=== PATIENT | female | born 1965 | race Caucasian/White ===

== ENCOUNTER → 2017-01-30 15:29 | Outpatient (CLI) | payer OTHER ==
[2014-05-15 08:51] VITALS: BMI 38.3
[~2017-01-30 15:29] MED LIST: AMBIEN10 MG PO; ATARAX 25 MG TA25 MG; BAYER CHEWABLE81 MG PO; CELEBREX200 MG PO; COREG25 MG PO; COUMADIN5 MG PO; CRESTOR20 MG PO; ESTRADERM 0.10.1 MG TD; ESTROGEN PATCH GT; GLUCOPHAGE1000 MG PO; LANTUS INSULIN10 ML SC; METANX; NORCO 10/325 TA1 TA1 PO; PERCOCET 10/3251 TA1 PO; PLAVIX75 MG PO; PRINIVIL20 MG PO; PROMETRIUM100 MG PO; VITAMIN D2000 UNIT PO
== END | disposition home or self-care (01) ==
LOC: D.MAMMO 08:15
DX: Z12.31 Encounter for screening mammogram for malignant neoplasm of breast (principal)

== ENCOUNTER → 2017-05-28 16:59 | Outpatient (CLI) | payer OTHER ==
[2014-05-15 08:51] VITALS: BMI 38.3
== END | disposition home or self-care (01) ==
LOC: D.MAMMO 15:00
DX: R92.8 Other abnormal and inconclusive findings on diagnostic imaging of breast (principal)

== ENCOUNTER → 2017-12-12 | Emergency (ER) | payer OTHER ==
[2014-05-15 08:51] VITALS: BMI 38.3
== END | disposition home or self-care (01) ==
LOC: D.ER 21:51
DX: Z02.9 Encounter for administrative examinations, unspecified (principal)

== ENCOUNTER 2018-10-23 19:00 | Outpatient (CLI) | payer OTHER ==
[2014-05-15 08:51] VITALS: BMI 38.3
== END 2018-10-23 23:59 | disposition home or self-care (01) ==
LOC: D.MAMMO 19:00
DX: Z12.31 Encounter for screening mammogram for malignant neoplasm of breast (principal)

== ENCOUNTER → 2018-11-21 16:44 | Outpatient (CLI) | payer OTHER ==
[2014-05-15 08:51] VITALS: BMI 38.3
[2018-11-21 19:10] LABS: BASOPHILS 0.6 % (0-2); EOSINOPHILS 1.8 % (0-7); HEMATOCRIT 41.8 % (36.0-48.0); HEMOGLOBIN 13.9 g/dL (12-16); IMMATURE GRANULOCYTES 0.1 % (0-5); LYMPHOCYTES 37.4 % (15-50); MCH 28.3 pg (26.0-34.0); MCHC 33.3 g/dL (31.0-37.0); MCV 85.1 fL (80.0-100.0); MEAN PLATELET VOLUME 11.4 fL (7.4-10.4); MONOCYTES 6.7 % (2-11); NEUTROPHILS 53.4 % (40-80); RBC 4.91 10x6/uL (4.00-5.40); RDW 14.3 % (11.5-14.5); WBC 8.2 10x3/uL (4.8-10.8)
[2018-11-21 19:12] LABS: PLATELET COUNT 298 10x3/uL (130-400)
[2018-11-21 20:36] LABS: ERYTHROCYTE SEDIMENTATION RATE 15 mm/hr (0-30)
== END | disposition home or self-care (01) ==
LOC: D.LABREF 16:44
PROVIDERS: Orthopaedic Surgery
DX: M25.561 Pain in right knee (principal)

== ENCOUNTER → 2018-12-11 10:06 | Outpatient (CLI) | payer OTHER ==
[2014-05-15 08:51] VITALS: BMI 38.3
== END | disposition home or self-care (01) ==
LOC: D.NM 10:06
DX: T84.84XA Pain due to internal orthopedic prosthetic devices, implants and grafts, initial encounter (principal)

== ENCOUNTER → 2018-12-16 18:46 | Outpatient (CLI) | payer OTHER ==
[2014-05-15 08:51] VITALS: BMI 38.3
== END | disposition home or self-care (01) ==
LOC: D.LABREF 18:46
DX: M25.561 Pain in right knee (principal)

== ENCOUNTER → 2019-01-16 11:17 | Outpatient (CLI) | payer OTHER ==
[2014-05-15 08:51] VITALS: BMI 38.3
== END | disposition home or self-care (01) ==
LOC: D.LABREF 11:17
PROVIDERS: ATTEND Orthopaedic Surgery
DX: M17.11 Unilateral primary osteoarthritis, right knee (principal); Z11.8 Encounter for screening for other infectious and parasitic diseases

== ENCOUNTER 2019-01-28 12:23 | Inpatient (IN) | payer OTHER ==
[~2019-01-28] VITALS: Ht 160 cm; Wt 86.8 kg
[~2019-01-28 12:23] MED LIST changes: +HYDROCODON-ACE1 EAC2 PO; -NORCO 10/325 TA1 TA1 PO
[2019-02-04] MEDS ORDERED: LIPITOR40 MG PO (13:36)
[2019-02-04] MEDS ORDERED: VICTOZA0.6 MG/0.1 SQ (13:38)
[2019-02-04] MEDS ORDERED: ROBAXIN500 MG PO (13:39)
[2019-02-04] MEDS ORDERED: NEURONTIN 300300 MG PO (13:39)
[2019-02-04] MEDS ORDERED: TEMAZEPAM30 MG PO (13:40)
[2019-02-04] MEDS ORDERED: EFFEXOR XR150 MG PO (13:41)
[2019-02-04] MEDS ORDERED: SINGULAIR10 MG PO (13:41)
[2019-02-04] MEDS ORDERED: VITAMIN E200 UNI1 PO (13:42)
[2019-02-04] MEDS ORDERED: DOXEPIN HCL10 MG PO (13:42)
[2019-02-04] MEDS ORDERED: VITAMIN D5000 UNIT PO (13:42)
[2019-02-05 10:58] LABS: BASOPHILS 0.3 % (0-2); IMMATURE GRANULOCYTES 0.2 % (0-5); LYMPHOCYTES 31.5 % (15-50); MCH 28.6 pg (26.0-34.0); MCHC 33.3 g/dL (31.0-37.0); MCV 85.9 fL (80.0-100.0); MEAN PLATELET VOLUME 11.1 fL (7.4-10.4); MONOCYTES 7.4 % (2-11); NEUTROPHILS 59.6 % (40-80); PLATELET COUNT 278 10x3/uL (130-400); RBC 5.24 10x6/uL (4.00-5.40); RDW 14.8 % (11.5-14.5); WBC 11.6 10x3/uL (4.8-10.8)
[2019-02-05 11:10] LABS: ANION GAP 13.5 mmol/L (8-16); CALCIUM 9.3 mg/dL (8.5-10.1); CARBON DIOXIDE 26.7 mmol/L (21.0-32.0); CREATININE - SERUM 1.1 mg/dL (0.6-1.3); POTASSIUM - SERUM 4.2 mmol/L (3.5-5.1)
[2019-02-05 11:29] LABS: APTT 27.5 SECONDS (22.8-39.4); INR 0.99 (0.85-1.17); PROTIME 12.6 SECONDS (11.6-15.0)
[2019-02-05 11:49] LABS: APPEARANCE HAZY (CLEAR); COLOR YELLOW (YELLOW); SPECIFIC GRAVITY 1.025 (1.005-1.020)
[2019-02-05 11:50] LABS: BACTERIA FEW /hpf (NONE SEEN); BILIRUBIN NEGATIVE (NEGATIVE); EPITHELIAL CELLS OCC /hpf (0-5); GLUCOSE 250 mg/dL (NEGATIVE); KETONE NEGATIVE (NEGATIVE); MUCUS <1+ /lpf (NONE SEEN); NITRITE NEGATIVE (NEGATIVE); PROTEIN NEGATIVE (NEGATIVE); RED CELLS - URINE 0-5 /hpf (0-5); UROBILINOGEN NORMAL (NORMAL); WHITE CELLS - URINE OCC /hpf (0-5)
[2019-02-11 07:25] VITALS: BP 125/91; BMI 33.9
[2019-02-11 15:18] VITALS: BP 114/71
[2019-02-11 17:42] VITALS: BP 107/69; Ht 160 cm; Wt 86.8 kg
[2019-02-11 20:00] VITALS: BP 101/59
--- NOTE | 2019-02-11 21:15 | NUR ---
PT VOIDED 400CC OF CLEAR, YELLOW URINE USING BEDPAN. ABLE TO TURN INDEPENDENTLY, REPORTS ONLY MILD DISCOMFORT. WILL CONTINUE TO MONITOR.
[2019-02-12 04:00] VITALS: BP 100/61
--- NOTE | 2019-02-12 04:25 | NUR ---
I have reviewed this patient and I concur with the Shift Assessment completed by the Licensed Practical Nurse today this shift.
[2019-02-12 05:34] LABS: HEMATOCRIT 38.6 % (36.0-48.0); HEMOGLOBIN 12.4 g/dL (12-16); MCH 27.6 pg (26.0-34.0); MCHC 32.1 g/dL (31.0-37.0); MCV 85.8 fL (80.0-100.0); MEAN PLATELET VOLUME 11.7 fL (7.4-10.4); RBC 4.5 10x6/uL (4.00-5.40); RDW 14.8 % (11.5-14.5); WBC 17.6 10x3/uL (4.8-10.8)
[2019-02-12 09:41] VITALS: BP 99/67
[2019-02-12 12:40] LABS: APPEARANCE HAZY (CLEAR); BILIRUBIN NEGATIVE (NEGATIVE); COLOR YELLOW (YELLOW); GLUCOSE 100 mg/dL (NEGATIVE); KETONE NEGATIVE (NEGATIVE); NITRITE NEGATIVE (NEGATIVE); PROTEIN NEGATIVE (NEGATIVE); SPECIFIC GRAVITY 1.015 (1.005-1.020); UROBILINOGEN NORMAL (NORMAL); WHITE CELLS - URINE 0-5 /hpf (0-5)
[2019-02-12 12:41] LABS: AMORPHOUS SEDIMENT <1+ /lpf (NONE SEEN); BACTERIA MODERATE /hpf (NONE SEEN); EPITHELIAL CELLS 0-5 /hpf (0-5); MUCUS <1+ /lpf (NONE SEEN)
--- NOTE | 2019-02-12 14:08 | OP ---
PATIENT NAME: ANDI CARTER MEDICAL RECORD: [id number] :67 LOCATION:D.MS Flores2212 ADMISSION DATE:02/11/19 SURGEON: HARVINDER BAKER DO DATE OF OPERATION: 02/11/2019 PROCEDURE PERFORMED: Revision of right total knee. 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 INDICATIONS: Ms. Carter is a 54-year-old female who had her right knee replaced 3 or 4 years ago. She has had some pain for the last couple of years, mostly on the tibial side. She had x-rays done, which did not show anything obvious, but after she had a bone scan done, did show the medial side of the tibia as a stress reaction, which would indicate loosening or infection. Her knee was aspirated and sent for culture and did not grow any culture, any bacteria. Therefore, clearing her of infection as well as a cell count was very low. The patient was also drawn labs, ESR and CRP, they were normal. After a full workup and discovering it was loose, I informed the patient we could revise it and hopefully just take out the tibial component in order to get good exposure, but she would be at increased risk for infection due to her diabetes and smoking. Said she would cut back on smoking and get her diabetes under control. She is aware of the risk as well as bleeding, damage to nerves and vessels, need for further surgery, fracture, blood clots, pulmonary embolus and even , and she signed a consent. SURGEON: Harvinder Baker DO PRODUCTION DEPARTMENT SUPERVISOR: Eduardo Buckner, advanced nurse practitioner. He assisted with her retraction and closing. This could not have been performed without him. DESCRIPTION OF PROCEDURE: Once the patient received a block in the preoperative area by anesthesia. She was taken to the operative suite, laid in supine position. The right lower extremity was prepped and draped in sterile fashion. Timeout was performed and everyone was in agreement with the correct side, site, patient and procedure. Then, the right lower extremity incision was marked out and covered with Ioban. Once the skin was covered with Ioban, the incision began over the old wound extending it proximally some for exposure. A 10-blade knife was used to go down through the skin and exposing the capsule, and a fresh 10-blade was used to follow the old incision. The #2 Ethibond that was in there was removed. The capsule was then opened and the gutters were established. Once the gutters were established, the tibial poly was removed and then osteotome was used to further loosen the tibial component. This was done and then it was removed. It did have a chunk of bone posteriorly that come off with the tibial component. The tibial component was removed and then we reamed to a 13 and the cutting guide was slipped over the intramedullary reamer and took 2 off to freshen up the tibia, leaving good cortical bone on the medial and lateral sides and the posterolateral. The posteromedial did have a small void there, did not want to continue to cut the tibia down further as she had good cortical contact on the other 3 cortices. Once the cut was freshened up, the excess bone was removed and then we sized with 5 augments and the 10 augments, 10 augments fit better with a 13 and 16 poly, decided to go with that. The tibia was then reamed much little further down to get the 13 down far enough. This was then trialed and fit very well. We then prepped the tibia irrigating OPERATIVE REPORT [id number] ANDI CARTER it thoroughly and the tibial components were put together with the 10 augments. Cement was mixed and then placed on the tibial component and the tibia. Then the tibia was impacted into place, controlling rotation with the handle. Once this was impacted into place, excess cement was removed. Had good contact on a cortex, medial and lateral and posterolateral, had a good cement buildup posterior medial. The 16 poly was then placed in between the tibia and the femur, and brought into extension while the cement dried. Once the cement had dried, we trialed a 19 poly, it fit very well, it was good tight fit, decided to go with that, that was removed, and the 19 actual poly was used with size 2 tibia with a 13 mm x 100 mm length stem for distal fixation. The knee was then thoroughly irrigated and the tourniquet was let down at 63 minutes. The right lower extremity had been exsanguinated prior to beginning and tourniquet was inflated and it was up for a total of 63 minutes. Once the tourniquet was let down, any bleeders were coagulated with the Aquamantys and then the capsule was closed with #2 Ethibond in [id number] fashion. Once the capsule was closed, this was irrigated. Prior to closure of the capsule, the patient had received TXA first prior to the first incision, and once the tourniquet was let down 1 gram at each time. The knee was then in the gutters, was placed tobramycin and vancomycin powder as well as Surgicel beads or powder. Then, the capsule was closed. The capsule was irrigated and then a 2-0 Vicryl was used on the skin in an inverted interrupted fashion and a Zipline was placed on the knee. Adaptic, 4 x 4's, ABD, Webril and Tejas wrap were then placed on the knee, KRISTI hose stocking up to the knee. The patient was then awakened and taken to recovery in stable condition. Blood loss was approximately 150 mL. COMPLICATIONS: None. TRANSINT:[id number] Voice Confirmation ID: [id number] DOCUMENT ID: [id number] HARVINDER BAKER DO at 1408 CC: [id number] DICTATION DATE: 02/11/19 1302 MENTALLY IMPAIRED TEACHER: 02/11/19 1545 ADM IN [facility] [address] [place] [address]
[2019-02-12 15:09] VITALS: BP 101/66
[2019-02-12 16:00] VITALS: BP 128/71
--- NOTE | 2019-02-12 18:44 | NUR ---
I have reviewed this patient and I concur with the Shift Assessment completed by the Licensed Practical Nurse today this shift.
[2019-02-12 20:00] VITALS: BP 115/68
--- NOTE | 2019-02-12 20:20 | NUR ---
PT RESTING IN BED. ALERT AND ORIENTED. NO SIGNS OF DISTRESS. BREATHING EVEN AND UNLABORED. PT STATES NO PROBLEMS AT THIS TIME. IV SITE LT HAND DRESSING CLEAN DRY AND INTACT. NO SIGNS OF INFECTION. BOWEL SOUNDS ACTIVE. NO LOWER LEG SWELLING PRESENT. RT KNEE DRESSING CLEAN DRY AND INTACT. WILL CONTINUE PLAN OF CARE. CALL LIGHT IN REACH. BED LOWERED AND LOCKED. BED RAILS UP X2.
--- NOTE | 2019-02-12 21:00 | NUR ---
FSBS 123 NO COVERAGE NEEDED AT THIS TIME PER SS.
[2019-02-13] VITALS: BP 138/64
--- NOTE | 2019-02-13 03:35 | NUR ---
I have reviewed this patient and I concur with the Shift Assessment completed by the Licensed Practical Nurse today this shift.
[2019-02-13 04:00] VITALS: BP 139/86
[2019-02-13 05:02] LABS: HEMOGLOBIN 12.1 g/dL (12-16); MCH 27.6 pg (26.0-34.0); MCHC 32.7 g/dL (31.0-37.0); MCV 84.5 fL (80.0-100.0); MEAN PLATELET VOLUME 11.1 fL (7.4-10.4); RBC 4.38 10x6/uL (4.00-5.40); RDW 14.9 % (11.5-14.5)
[2019-02-13 05:05] LABS: WBC 10.3 10x3/uL (4.8-10.8)
[2019-02-13 05:08] LABS: ANION GAP 13.7 mmol/L (8-16); CALCIUM 8.8 mg/dL (8.5-10.1); CARBON DIOXIDE 26.1 mmol/L (21.0-32.0); POTASSIUM - SERUM 3.8 mmol/L (3.5-5.1)
[2019-02-13 08:33] VITALS: BP 138/92
[2019-02-13 11:46] VITALS: BP 106/73
[2019-02-13] MEDS ORDERED: ELIQUIS2.5 MG PO (12:57)
[2019-02-13] MEDS ORDERED: BACTRIM 400-801 TAB PO (12:58)
[2019-02-13] MEDS ORDERED: OXYCODONE HCL5 M1 PO (12:58)
[2019-02-13] MEDS ORDERED: VISTARIL50 MG PO (12:59)
--- NOTE | 2019-02-13 13:32 | MORECARE ---
CASE MANAGEMENT DISCHARGE SUMMARY PATIENT: ANDI CARTER UNIT: [id number] ADM DATE: 02/11/19 AGE: 54 : 67 SEX: F ROOM/BED: D.2212 AUTHOR: ILDA SIEGEL PHYSICIAN: REFERRING PHYSICIAN: ELPIDIO BAKER DO DATE OF SERVICE: 02/13/19 Discharge Plan Patient Name: ANDI CARTER Facility: [facility]:[place] : 1965 Planned Disposition: Home Anticipated Discharge Date: Discharge Date: Expected LOS: Initial Reviewer: [email or web address] Initial Review Date: 02/11/2019 Generated: 02/13/19 2:32 pm DCPIA - Discharge Planning Initial Assessment Updated by [email or web address]: Kandace Riggs on 02/13/19 1:28 pm * Is the patient Alert and Oriented? Yes * How many steps to enter\exit or inside your home? * PCP MALIK AGUILAR APN * Pharmacy [facility] * Preadmission Environment Home with Family * ADLs Independent * Equipment Bedside Commode Rolling Walker * Other Equipment CPM * List name and contact numbers for known caregivers / representatives who currently or will assist patient after discharge: VEL CARTER [phone] * Verbal permission to speak to the caregivers and representatives has been obtained from the patient. N/A * Community resources currently utilized None * Additional services required to return to the preadmission environment? Yes * Can the patient safely return to the preadmission environment? Yes * Has this patient been hospitalized within the prior 30 days at any hospital? No External Providers External Provider: [facility] Next Contact Date: Service Request Date: Service Type: Resolution: Reviewer: Comments: Patient Name: ANDI CARTER Page 46600 at 1332 All edits/amendments must be made on the electronic document DICTATION DATE: 02/13/191331 WATER SOFTENER SERVICER: MIGUEL 02/13/19 1332 RPT#: [id number] DC DATE: STATUS: ADM IN [facility] [address] [place] [address] END OF REPORT
--- NOTE | 2019-02-13 13:40 | MORECARE ---
CASE MANAGEMENT DISCHARGE SUMMARY PATIENT: ANDI CARTER UNIT: [id number] ADM DATE: 02/11/19 AGE: 54 : 67 SEX: F ROOM/BED: D.2212 AUTHOR: ROBBIN,DOC PHYSICIAN: REFERRING PHYSICIAN: ELPIDIO BAKER DO DATE OF SERVICE: 02/13/19 Discharge Plan Patient Name: ANDI CARTER Facility: [facility]:[place] : 1965 Planned Disposition: Home Anticipated Discharge Date: Discharge Date: Expected LOS: Initial Reviewer: [email or web address] Initial Review Date: 02/11/2019 Generated: 02/13/19 2:39 pm Comments DCP- Discharge Planning Updated by [email or web address]: Kandace Riggs on 02/13/19 12:[address] Patient Name: ANDI CARTER Admission Status: Elective Accout number: [id number] Admission Date: 02-11-2019 : 1965 Admission Diagnosis: Attending: ELPIDIO BAKER Current LOS: 2 Anticipated DC Date: Planned Disposition: Home Primary Insurance: [employer] Discharge Planning Comments: CM met with patient to complete initial dc planning assessment. CM educated patient on the CM role and verbal consent given by patient to complete assessment. Patient lives at home where she is independent with his care. Her mother will be her medical driver home. At discharge patient plans to return home and do outpatient pt at [facility] and feels this is a safe discharge. Patient has a walker, bsc, and cpm at home. I have set up her first appointment for Sunday at 7:00 with W[facility]. I spoke with Parminder. Patient denied known discharge needs at this time. CM will continue to follow and will assist as needed with dc plans/needs. Manager Advertising: Kandace Riggs DCPIA - Discharge Planning Initial Assessment Updated by [email or web address]: Kandace Riggs on 02/13/19 1:28 pm * Is the patient Alert and Oriented? Yes * How many steps to enter\exit or inside your home? * PCP MALIK AGUILAR APN * Pharmacy [facility] * Preadmission Environment Home with Family * ADLs Independent * Equipment Bedside Commode Rolling Walker * Other Equipment CPM * List name and contact numbers for known caregivers / representatives who currently or will assist patient after discharge: VEL CARTER [phone] * Verbal permission to speak to the caregivers and representatives has been obtained from the patient. N/A * Community resources currently utilized None * Additional services required to return to the preadmission environment? Yes * Can the patient safely return to the preadmission environment? Yes * Has this patient been hospitalized within the prior 30 days at any hospital? No Last DP export: 02/13/19 12:32 p Patient Name: ANDI CARTER Page [id number] at 1340 All edits/amendments must be made on the electronic document DICTATION DATE: 02/13/191338 VIDEO GAME PRODUCER: MIGUEL 02/13/191338 RPT#: [id number] DC DATE: STATUS: ADM IN [facility] [address] [place] [address] END OF REPORT
== END 2019-02-13 15:02 | disposition home or self-care (01) | DRG 467 ==
LOC: D.SDCHOLD 02-05 10:00 → D.MS 02-11 07:00 → D.SDCHOLD 02-11 07:00 → D.MS 02-11 15:05
PROVIDERS: Internal Medicine Nephrology; ADMIT Orthopaedic Surgery; ATTEND Orthopaedic Surgery
PROC: 0SRV0J9 Replacement of Right Knee Joint, Tibial Surface with Synthetic Substitute, Cemented, Open Approach (ICD-10-PCS; 2019-02-11)
PROC: 0SPV0JZ Removal of Synthetic Substitute from Right Knee Joint, Tibial Surface, Open Approach (ICD-10-PCS; principal; 2019-02-11 09:00)
DX: T84.032A Mechanical loosening of internal right knee prosthetic joint, initial encounter (principal); F17.213 Nicotine dependence, cigarettes, with withdrawal; E11.9 Type 2 diabetes mellitus without complications; Z72.0 Tobacco use; E11.65 Type 2 diabetes mellitus with hyperglycemia; I25.10 Atherosclerotic heart disease of native coronary artery without angina pectoris; E78.5 Hyperlipidemia, unspecified; I10 Essential (primary) hypertension

== ENCOUNTER 2019-10-07 06:10 | Inpatient (IN) | payer OTHER ==
[2019-10-06 11:59] LABS: ANION GAP 10.6 mmol/L (8-16); CALCIUM 8.8 mg/dL (8.5-10.1); CARBON DIOXIDE 28.4 mmol/L (21.0-32.0); CREATININE - SERUM 1.2 mg/dL (0.6-1.3)
[2019-10-06 12:10] LABS: HEMATOCRIT 43.6 % (36.0-48.0); HEMOGLOBIN 14.4 g/dL (12-16); MCH 28.9 pg (26.0-34.0); MCV 87.6 fL (80.0-100.0); MEAN PLATELET VOLUME 11.3 fL (7.4-10.4); RBC 4.98 10x6/uL (4.00-5.40); WBC 7.2 10x3/uL (4.8-10.8)
[~2019-10-07] VITALS: Ht 160 cm; Wt 83.2 kg
[~2019-10-07 06:10] MED LIST changes: +ASPIRIN EC81 M1 PO; +BACTRIM 400-801 TAB PO; +DOXEPIN HCL10 MG PO; +EFFEXOR XR150 MG PO; +ELIQUIS2.5 MG PO; +LIPITOR40 MG PO; +NEURONTIN 300300 MG PO; +OXYCODONE HCL5 M1 PO; +ROBAXIN500 MG PO; +SINGULAIR10 MG PO; +TEMAZEPAM30 MG PO; +VICTOZA0.6 MG/0.1 SQ; +VISTARIL50 MG PO; +VITAMIN D5000 UNIT PO; +VITAMIN E200 UNI1 PO
[2019-10-07 06:39] VITALS: BP 153/86; BMI 31.9
--- NOTE | 2019-10-07 11:26 | NUR ---
PLASMA BLADE SETTINGS 04/12 PATIENT RETURN ELECTRODE PAD LOT # [id number] EXP 11/20/2020 PT RIGHT LEG CLEANED WITH HIBICLEANSE AND ALCOHOL FROM UPPER THIGH TO TOES CIRCUMFERENCIALLY, DRIED WITH STERILE TOWEL, THEN WIPED WITH ALCOHOL PIOR TO PREP. PREPPED FROM UPPER THIGH TO TOES CIRCUMFERENCIALLY WITH CHLORAPREP X2. TRAFFIC KEPT TO A MINIMUM IN AND OUT OF ROOM PT GREAT TOENAIL ON RIGHT FOOT THICK, WHITE AND APPEARS SOMEWHAT FLAKY. WOUND PACKED WITH TOBRAMYCIN AND VANCOMYCIN
[2019-10-07 13:52] VITALS: BP 101/68
--- NOTE | 2019-10-07 15:17 | OP ---
PATIENT NAME: ANDI CARTER MEDICAL RECORD: [id number] :67 LOCATION: D.2227 ADMISSION DATE:10/07/19 SURGEON: ELPIDIO BAKER, DATE OF OPERATION: 10/07/2019 PRINCIPAL PROCEDURE PERFORMED: Revision of right total knee. 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 INDICATIONS: Ms. Carter is a 54-year-old female who had a revision knee done in February of this year. She, a few months after, fell and felt a pop in her knee and had some instability with valgus stress, she continued to have this. She did wear a brace for a long time and she was tired of dealing with it. Initially, said she did not want any surgery and then she said she could deal with it. I formed her, we could try to fix the MCL or do a revision. She probably would need a revision more likely in order to make it more stable as she did not have a posterior stabilized knee and if the PCL ruptures indeed she would need that. She was okay with that and was aware of the risks including increased risk for infection due to the fact it is the third time the knee has been in as she had revision knee back in February. Bleeding damage to nerves and vessels, need for further surgery, continued pain, loss of the use of the limb, leg length discrepancy, blood clots, and even and she signed the consent. DESCRIPTION OF PROCEDURE: The patient was taken to the operative suite after given a block by anesthesia in the preoperative area. I was assisted by Antelmo Buckner, advanced nurse practitioner. He assisted with closing and retraction and this procedure could not have been performed without his help. DESCRIPTION OF PROCEDURE: The patient was taken to the operative suite and laid in the supine position, given general anesthetic. LMA was placed, given 2 grams Ancef. The right lower extremity was then prepped and draped in sterile fashion. A timeout was performed and everyone was in agreement with the correct side, site, patient, and procedure. Incision was then marked out and covered in Ioban and careful dissection was made into the prior capsular incision and then a fresh 10-blade was used to go through the prior incision. The femur was exposed. The poly was popped out and the femur was loosened with flexible osteotomes. This was popped off. We then reamed the canal to a 12 and some chatter and then freshened up the distal cuts on the femur. We then opened the canal some more of the opening and trialled with a 10 augment and then a 15 augment, 15 augment did better, and with a 22 poly I believe and then this had good stability with medial or lateral in extension and flexion with the MCL out gave good stability. This trials were removed and the actual implants were placed in and the femur was cemented in the more distal portion, but not in the stem. This was impacted into place and then the 22 poly was snapped in. This left out in extension. The knee was thoroughly irrigated and then a Betadine solution with 500 mL of normal saline was used in the wound for 3 minutes. This was then irrigated out with a liter and then tobramycin and vancomycin powder and Best were placed in the wound and the capsule was closed with #2 Ethibond in [id number]-op-jhueg fashion and then the skin with 2-0 Vicryl in an inverted interrupted fashion. ZipLine was placed on the knee. Adaptic, 4 x 4s, ABD, Webril, Tejas wrap was then placed on the knee and a KRISTI hose stocking placed up OPERATIVE REPORT [id number] ANDI CARTER to the knee. She was awakened and taken to recovery in stable condition. Blood loss was approximately 300 mL. COMPLICATIONS: None. TRANSINT:[id number] Voice Confirmation ID: [id number] DOCUMENT ID: [id number] ELPIDIO BAKER DO at 1517 CC: [id number] DICTATION DATE: 10/07/19 1229 LEGAL ENTITY CONTROLLER: 10/07/19 1356 ADM IN [facility] [address] [place] [address]
[2019-10-07 16:03] VITALS: BP 111/70
[2019-10-07 17:35] VITALS: BP 101/68; Ht 160 cm; Wt 83.2 kg
--- NOTE | 2019-10-07 19:13 | NUR ---
LYING IN BED RESTING QUIETLY WITH EYES CLOSED. SHOWS NO S/S OF ANY ACUTE DISTRESS AT THIS TIME.
[2019-10-07 21:15] VITALS: BP 96/61
--- NOTE | 2019-10-07 23:18 | NUR ---
I have reviewed this patient and I concur with the Shift Assessment completed by the Licensed Practical Nurse today this shift.
[2019-10-08 01:04] VITALS: BP 97/57
[2019-10-08 05:50] VITALS: BP 107/71
[2019-10-08 06:40] LABS: CALCIUM 8.6 mg/dL (8.5-10.1); CARBON DIOXIDE 26.4 mmol/L (21.0-32.0); CREATININE - SERUM 1.1 mg/dL (0.6-1.3); POTASSIUM - SERUM 4.4 mmol/L (3.5-5.1)
[2019-10-08 08:05] LABS: BASOPHILS 0.1 % (0-2); EOSINOPHILS 0.1 % (0-7); HEMATOCRIT 37.1 % (36.0-48.0); HEMOGLOBIN 11.9 g/dL (12-16); IMMATURE GRANULOCYTES 0.3 % (0-5); LYMPHOCYTES 8.2 % (15-50); MCH 27.9 pg (26.0-34.0); MCHC 32.1 g/dL (31.0-37.0); MCV 86.9 fL (80.0-100.0); MEAN PLATELET VOLUME 11.6 fL (7.4-10.4); MONOCYTES 6.7 % (2-11); NEUTROPHILS 84.6 % (40-80); PLATELET COUNT 195 10x3/uL (130-400); RBC 4.27 10x6/uL (4.00-5.40); RDW 13.9 % (11.5-14.5)
[2019-10-08 08:07] LABS: WBC 16.1 10x3/uL (4.8-10.8)
[2019-10-08 08:11] VITALS: BP 101/60
--- NOTE | 2019-10-08 09:21 | NUR ---
RESTING IN BED, CPM IN PLACE, DRESSING DRY AND INTACT, CONT TO MONITOR PAIN, IV IFUSING
[2019-10-08 12:15] VITALS: BP 130/72
[2019-10-08 16:09] VITALS: BP 89/54
[2019-10-08 17:47] LABS: APPEARANCE CLEAR (CLEAR); BILIRUBIN NEGATIVE (NEGATIVE); COLOR YELLOW (YELLOW); GLUCOSE NEGATIVE (NEGATIVE); KETONE NEGATIVE (NEGATIVE); NITRITE NEGATIVE (NEGATIVE); PROTEIN TRACE mg/dL (NEGATIVE); UROBILINOGEN NORMAL (NORMAL)
--- NOTE | 2019-10-08 19:25 | NUR ---
MEDICATED WITH OXYCONTIN AND VISTARIL FOR C/O RT KNEE PAIN. CL IN REACH.
[2019-10-08 20:00] VITALS: BP 94/52
--- NOTE | 2019-10-08 21:05 | NUR ---
LYING IN BED. ALERT AND ORIENTED X4. RESP EVEN AND NONLABORED. NOT WEARING O2. JESUS WRAP NOTED TO RT KNEE WITH KRISTI HOSE. SCD NOTED TO LLE. PLEXI NOTED TO RLE. C/O PAIN IN RT KNEE RATING 7. STATES PAIN MED HELPED. CPM IN USE. REQUESTS IV FLUIDS BE TURNED OFF. PT INSISTS SHE IS DRINKING PLENTY OF FLUIDS. IV SALINE LOCKED AT THIS TIME. SR ELEVATED X2. CL IN REACH. ENCOURAGED USE OF I.S. AND SHE VERBALIZED UNDERSTANDING OF THIS.
[2019-10-09] VITALS: BP 101/64
--- NOTE | 2019-10-09 01:24 | NUR ---
RESTING QUIETLY WITH EYES CLOSED. NO DISTRESS. CL IN REACH.
[2019-10-09 04:00] VITALS: BP 98/60
--- NOTE | 2019-10-09 04:02 | NUR ---
MEDICATED FOR C/O PAIN IN RT KNEE WITH OXYCONTIN 10 MG AND VISTARIL ORDERED. ASSISTED UP WITH WALKER TO BSC TO VOID AND BACK TO BED. CL IN REACH.
[2019-10-09 06:39] LABS: ANION GAP 11.7 mmol/L (8-16); CALCIUM 8.9 mg/dL (8.5-10.1); CARBON DIOXIDE 28.5 mmol/L (21.0-32.0); POTASSIUM - SERUM 4.2 mmol/L (3.5-5.1)
[2019-10-09 06:57] LABS: HEMATOCRIT 35.1 % (36.0-48.0); HEMOGLOBIN 11.6 g/dL (12-16); LYMPHOCYTES 28.2 % (15-50); MCH 28.3 pg (26.0-34.0); MCV 85.6 fL (80.0-100.0); MEAN PLATELET VOLUME 11.6 fL (7.4-10.4); NEUTROPHILS 62.6 % (40-80); RDW 13.7 % (11.5-14.5)
[2019-10-09 07:04] LABS: PLATELET COUNT 151 10x3/uL (130-400); WBC 8.7 10x3/uL (4.8-10.8)
--- NOTE | 2019-10-09 07:05 | NUR ---
ALERT AND ORIENTED, RESTING IN BED EYES OPEN. NO C/O PAIN. NO S/S OF ACUTE DISTRESS NOTED. POD#2 RIGHT KNEE REVISION, DRESSING C/D/I. JESUS AND KRISTI HOSE TO RIGHT, SCD TO LEFT. UP WITH WALKER. ON CPM. IV TO LEFT HAND, SL. SITE PATENT WITHOUT REDNESS AND SWELLING. DENIES ANY NEEDS AT THIS TIME. CALL LIGHT IN REACH. WILL CONTINUE TO MONITOR.
[2019-10-09 08:36] VITALS: BP 107/50; BP 113/73
--- NOTE | 2019-10-09 12:10 | NUR ---
I have reviewed this patient and I concur with the Shift Assessment completed by the Licensed Practical Nurse today this shift.
[2019-10-09] MEDS ORDERED: KEFLEX500 MG PO (12:26)
[2019-10-09] MEDS ORDERED: BAYER CHEWABLE81 MG PO (12:26)
[2019-10-09] MEDS ORDERED: OXYCODONE HCL5 M1 PO (12:26)
[2019-10-09] MEDS ORDERED: VISTARIL50 MG PO (12:26)
--- NOTE | 2019-10-09 14:10 | MORECARE ---
CASE MANAGEMENT DISCHARGE SUMMARY PATIENT: ANDI CARTER UNIT: [id number] ADM DATE: 10/07/19 AGE: 54 : 67 SEX: F ROOM/BED: D.2227 AUTHOR: ROBBIN,DOC PHYSICIAN: REFERRING PHYSICIAN: ELPIDIO BAKER DO DATE OF SERVICE: 10/09/19 Discharge Plan Patient Name: ANDI CARTER Facility: [facility]:[place] : 1965 Planned Disposition: Home Anticipated Discharge Date: 10/09/19 Discharge Date: Expected LOS: 2 Initial Reviewer: [email or web address] Initial Review Date: 10/09/2019 Generated: 10/09/19 3:10 pm DCPIA - Discharge Planning Initial Assessment Updated by [email or web address]: Mayra Guillory on 10/09/19 2:09 pm * Is the patient Alert and Oriented? Yes * How many steps to enter\exit or inside your home? 1/0 * PCP Dr. Monk * Pharmacy [facility] * Preadmission Environment Home with Family * ADLs Independent * Equipment Bedside Commode Cane Other Shower Chair Walker * Other Equipment Cold Therapy * List name and contact numbers for known caregivers / representatives who currently or will assist patient after discharge: Kristen Pfeiffer [facility] - [phone] * Verbal permission to speak to the caregivers and representatives has been obtained from the patient. Yes * Community resources currently utilized None * Additional services required to return to the preadmission environment? Yes * Can the patient safely return to the preadmission environment? Yes * Has this patient been hospitalized within the prior 30 days at any hospital? No External Providers External Provider: OTHER-OTHER Next Contact Date: Service Request Date: Service Type: Resolution: Reviewer: Comments: External Provider: [facility] Next Contact Date: Service Request Date: Service Type: Resolution: Reviewer: Comments: Coverage Notice Reviewer: [email or web address] - Mayra Guillory Notice Issued Date-Time: 10/09/2019 14:02 Notice Type: Patient Choice Letter Notice Delivered To: Patient Relationship to Patient: Peoplesoft Consultant Name: Delivery Method: HAND - Hand Delivered Tenisha Days: Prior Verbal Notification: Recipient Understood Notice: Yes Recipient Signature: Yes Med Rec Note Co-signed by Attending: Coverage Notice Comment: LORENZO for [facility] Patient Name: ANDI CARTER Page [id number] at 1410 All edits/amendments must be made on the electronic document DICTATION DATE: 10/09/191409 CUSTOMER ENERGY SPECIALIST: MIGUEL 10/09/191409 RPT#: [id number] DC DATE: STATUS: ADM IN [facility] [address] [place] [address] END OF REPORT
--- NOTE | 2019-10-09 14:21 | MORECARE ---
CASE MANAGEMENT DISCHARGE SUMMARY PATIENT: ANDI CARTER UNIT: [id number] ADM DATE: 10/07/19 AGE: 54 : 67 SEX: F ROOM/BED: D.2227 AUTHOR: ROBBIN,DOC PHYSICIAN: REFERRING PHYSICIAN: HARVINDER BAKER DO DATE OF SERVICE: 10/09/19 Discharge Plan Patient Name: ANDI CARTER Facility: [facility]:[place] : 1965 Planned Disposition: Home Anticipated Discharge Date: 10/09/19 Discharge Date: Expected LOS: 2 Initial Reviewer: [email or web address] Initial Review Date: 10/09/2019 Generated: 10/09/19 3:20 pm Comments DCP- Discharge Planning Updated by [email or web address]: Mayra Guillory on 10/09/19 1:[address] Patient Name: ANDI CARTER Admission Status: Elective Accout number: [id number] Admission Date: 10-07-2019 : 1965 Admission Diagnosis: Attending: HARVINDER BAKER Current LOS: 2 Anticipated DC Date: 10-09-2019 Planned Disposition: Home Primary Insurance: [employer] Discharge Planning Comments: CM met with patient to complete initial dc planning assessment. CM educated patient on the CM role and verbal consent given by patient to complete assessment. Patient lives at home alone, but at discharge she will be going to her mother's home at [address] in [place] and feels this is a safe discharge. CM discussed availability of home health, rehab services, and medical equipment. Patient states she would like outpatient PT at [facility]. She will need a CPM and would like to use [facility]. I called Harvinder Luiz with [facility] and he will deliver it to her mother's house as requested. I called [facility] and spoke with Marcia, her first visit is Sunday at 9:15 with Wero Christiansen. Orders and clinical faxed to both [facility] and [facility]. CM will continue to follow and will assist as needed with dc plans/needs. Repairer Recreational Vehicle: Mayra Guillory DCPIA - Discharge Planning Initial Assessment Updated by [id number]: Mayra Guillory on 10/09/19 2:09 pm * Is the patient Alert and Oriented? Yes * How many steps to enter\exit or inside your home? 1/0 * PCP Dr. Monk * Pharmacy [facility] * Preadmission Environment Home with Family * ADLs Independent * Equipment Bedside Commode Cane Other Shower Chair Walker * Other Equipment Cold Therapy * List name and contact numbers for known caregivers / representatives who currently or will assist patient after discharge: Kristen Pfeiffer [facility] - [phone] * Verbal permission to speak to the caregivers and representatives has been obtained from the patient. Yes * Community resources currently utilized None * Additional services required to return to the preadmission environment? Yes * Can the patient safely return to the preadmission environment? Yes * Has this patient been hospitalized within the prior 30 days at any hospital? No Coverage Notice Reviewer: [email or web address] Juan Luis Guillory Notice Issued Date-Time: 10/09/2019 14:02 Notice Type: Patient Choice Letter Notice Delivered To: Patient Relationship to Patient: Maker Up Folding Name: Delivery Method: HAND - Hand Delivered Tenisha Days: Prior Verbal Notification: Recipient Understood Notice: Yes Recipient Signature: Yes Med Rec Note Co-signed by Attending: Coverage Notice Comment: LORENZO for [employer] Last DP export: 10/09/19 1:10 p Patient Name: ANDI CARTER Page [phone] at 1421 All edits/amendments must be made on the electronic document DICTATION DATE: 10/09/19 142 DIVER ASSISTANT: MIGUEL 10/09/19 142 RPT#: [id number] DC DATE: STATUS: ADM IN [facility] [address] [place] [address] END OF REPORT
[2019-10-09 14:44] VITALS: BP 106/69
--- NOTE | 2019-10-09 15:35 | NUR ---
DISCHARGED PATIENT HOME VIA WHEELCHAIR WITH FAMILY. DISCONTINUED IV, CATHETER TIP INTACT. CHANGED DRESSING TO RIGHT KNEE, REMOVED PREVIOUS DRESSING AND REPLACED WITH ANOTHER AND JESUS WRAP PER PHYSICIAN ORDERS. SENT HOME EXTRA DRESSING. WENT OVER DISCHARGE INSTRUCTIONS, VERBALIZED UNDERSTANDING.
--- NOTE | 2019-10-13 13:55 | MORECARE ---
CASE MANAGEMENT DISCHARGE SUMMARY PATIENT: ANDI CARTER UNIT: [id number] ADM DATE: 10/07/19 AGE: 54 : 67 SEX: F ROOM/BED: D.2227 AUTHOR: ROBBIN,ILDA PHYSICIAN: REFERRING PHYSICIAN: HARVINDER BAKER DO DATE OF SERVICE: 10/13/19 Discharge Plan Patient Name: ANDI CARTER Facility: [facility]:[place] : 1965 Planned Disposition: Home Anticipated Discharge Date: 10/09/19 Discharge Date: 10/09/2019 Expected LOS: 2 Initial Reviewer: [email or web address] Initial Review Date: 10/09/2019 Generated: 10/13/19 2:55 pm Comments DCP- Discharge Planning Updated by [email or web address]: Mayra Guillory on 10/09/19 1:[address] Patient Name: ANDI CARTER Admission Status: Elective Accout number: [id number] Admission Date: 10-07-2019 : 1965 Admission Diagnosis: Attending: HARVINDER BAKER Current LOS: 2 Anticipated DC Date: 10-09-2019 Planned Disposition: Home [facility] Discharge Planning Comments: CM met with patient to complete initial dc planning assessment. CM educated patient on the CM role and verbal consent given by patient to complete assessment. Patient lives at home alone, but at discharge she will be going to her mother's home at [address] in [place] and feels this is a safe discharge. CM discussed availability of home health, rehab services, and medical equipment. Patient states she would like outpatient PT at [facility]. She will need a CPM and would like to use [employer]. I called Harvinder Dee with [employer] and he will deliver it to her mother's house as requested. I called [facility] and spoke with Marcia, her first visit is Sunday at 9:15 with Wero Christiansen. Orders and clinical faxed to both [facility] and [facility]. CM will continue to follow and will assist as needed with dc plans/needs. Regrinder Operator: Mayra Guillory DCPIA - Discharge Planning Initial Assessment Updated by [email or web address]: Mayra Guillory on 10/09/19 2:09 pm * Is the patient Alert and Oriented? Yes * How many steps to enter\exit or inside your home? 1/0 * PCP Dr. Monk * Pharmacy [facility] * Preadmission Environment Home with Family * ADLs Independent * Equipment Bedside Commode Cane Other Shower Chair Walker * Other Equipment Cold Therapy * List name and contact numbers for known caregivers / representatives who currently or will assist patient after discharge: Kristen Pfeiffer [facility] [phone] * Verbal permission to speak to the caregivers and representatives has been obtained from the patient. Yes * Community resources currently utilized None * Additional services required to return to the preadmission environment? Yes * Can the patient safely return to the preadmission environment? Yes * Has this patient been hospitalized within the prior 30 days at any hospital? 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
== END 2019-10-09 15:39 | disposition home or self-care (01) | DRG 468 ==
LOC: D.PAN 06:10 → D.MS 12:37 → D.PAN 13:20 → D.MS 13:38 → D.PAN 13:38 → D.OPS 15:45 → D.PAN 15:45 → D.MS 10-09 15:39
PROVIDERS: Anesthesiology; Internal Medicine Nephrology; ADMIT Orthopaedic Surgery; ATTEND Orthopaedic Surgery
PROC: 0SPT0JZ Removal of Synthetic Substitute from Right Knee Joint, Femoral Surface, Open Approach (ICD-10-PCS; principal; 2019-10-07 08:15)
PROC: 0SRT0J9 Replacement of Right Knee Joint, Femoral Surface with Synthetic Substitute, Cemented, Open Approach (ICD-10-PCS; 2019-10-07 08:15)
DX: T84.022A Instability of internal right knee prosthesis, initial encounter (principal); S83.521A Sprain of posterior cruciate ligament of right knee, initial encounter; S83.411A Sprain of medial collateral ligament of right knee, initial encounter; E11.40 Type 2 diabetes mellitus with diabetic neuropathy, unspecified; I25.10 Atherosclerotic heart disease of native coronary artery without angina pectoris; I10 Essential (primary) hypertension; M19.90 Unspecified osteoarthritis, unspecified site; Z85.42 Personal history of malignant neoplasm of other parts of uterus; F17.200 Nicotine dependence, unspecified, uncomplicated

== ENCOUNTER 2019-11-18 19:30 | Outpatient (CLI) | payer OTHER ==
[2019-10-07 17:35] VITALS: BMI 32.4
[~2019-11-18 19:30] MED LIST changes: +KEFLEX500 MG PO
== END 2019-11-18 23:59 | disposition home or self-care (01) ==
LOC: D.MAMMO 19:30
PROVIDERS: ATTEND Clinical Nurse Specialist Family Health
DX: Z12.31 Encounter for screening mammogram for malignant neoplasm of breast (principal)

== ENCOUNTER → 2020-05-19 10:34 | Outpatient (CLI) | payer OTHER ==
[2019-10-07 17:35] VITALS: BMI 32.4
== END | disposition home or self-care (01) ==
LOC: D.MRI 10:34
PROVIDERS: ATTEND Orthopaedic Surgery
DX: M54.16 Radiculopathy, lumbar region (principal)